=== PATIENT | female | born 1995 | race American Indian/Alaskan Native ===

== ENCOUNTER 2018-02-25 15:43 | Outpatient (CLI) | payer MEDICAID ==
[2018-02-25 16:04] VITALS: BP 117/61
--- NOTE | 2018-02-25 18:00 | Ultrasound Report ---
FINAL REPORT PROCEDURE: US OB BPP WO NON-STRESS TECHNIQUE: Sonographic evaluation for breathing, movement, tone, and amniotic fluid volume was performed. CPT 13051 HISTORY: non reactive NST COMPARISON: No prior studies are available for comparison. FINDINGS: Amniotic fluid volume: Normal-score 2. At least one vertical pocket > 2 cm or more in vertical axis. breathing: Normal-score 2. movement: Normal-score 2. tone: Normal. Score: 8 of 8. Single living intrauterine gestation visualized in the breech presentation with a heart rate of 143 beats per minute. IMPRESSION: Normal biophysical profile study. Breech presentation. Further evaluation was neither requested nor performed.
== END 2018-02-25 18:08 | disposition home or self-care (01) ==
LOC: TRG 15:43
PROVIDERS: ATTEND Obstetrics & Gynecology
DX: O32.1XX0 Maternal care for breech presentation, not applicable or unspecified (principal); O47.03 False labor before 37 completed weeks of gestation, third trimester; Z3A.33 33 weeks gestation of pregnancy
CPT/HCPCS: 59025; 76819